=== PATIENT | male | born 1990 | race African-American/Black ===

== ENCOUNTER 2017-06-22 07:47 | Emergency (ER) | payer MEDICAID, OTHER ==
[~2017-06-22] VITALS: Ht 182.9 cm; Wt 65.9 kg
[2017-06-22] MEDS ORDERED: CEPH500T PO (07:58)
[2017-06-22] MEDS ORDERED: LIDOCAINE 2% MDV 20 ML VIAL SC ONE (08:30)
[2017-06-22 09:13] VITALS: BP 117/53
== END 2017-06-22 09:24 | disposition home or self-care (01) ==
LOC: M ED 07:47
DX: L72.3 Sebaceous cyst (principal); Z87.891 Personal history of nicotine dependence

== ENCOUNTER 2024-08-16 12:31 | Emergency (ER) | payer OTHER, MEDICAID ==
[~2024-08-16] VITALS: Ht 182.9 cm; Wt 61.9 kg
[~2024-08-16 12:31] MED LIST: CEPH500T PO
[2024-08-16] MEDS: KETOROLAC 30 MG/ML 1ML VIAL IV ONE (16:17)
[2024-08-16] MEDS ORDERED: IBUP-1022 PO (16:24)
[2024-08-16 16:40] VITALS: BP 128/87; TEMP 99.9; O2SAT 99
== END 2024-08-16 16:46 | disposition home or self-care (01) ==
LOC: EDBD 12:31 → M ED 12:31
DX: S16.1XXA Strain of muscle, fascia and tendon at neck level, initial encounter (principal); S06.0X0A Concussion without loss of consciousness, initial encounter; S80.12XA Contusion of left lower leg, initial encounter; W13.2XXA Fall from, out of or through roof, initial encounter; Y92.009 Unspecified place in unspecified non-institutional (private) residence as the place of occurrence of the external cause; Y93.89 Activity, other specified; Y99.9 Unspecified external cause status; Z79.1 Long term (current) use of non-steroidal anti-inflammatories (NSAID)
CPT/HCPCS: 70450; 72125; 73502; 73552; 73564; 80047; 96374; 99284; J1885

== ENCOUNTER 2024-10-24 12:11 | Inpatient (IN) | payer OTHER ==
[~2024-10-24] VITALS: Ht 182.9 cm; Wt 58.8 kg
[~2024-10-24 12:11] MED LIST changes: +IBUP-1022 PO
[2024-10-24] MEDS ORDERED: ISOVUE-370 76% 100ML VIAL As Ordered ONE (12:54)
[2024-10-24 13:12] LABS: HEMATOCRIT 41.3 % (42.0-52.0); HEMOGLOBIN 14.1 g/dl (13.5-17.5); MEAN CORPUSCULAR HEMOGLOBIN 29.6 pg (27.0-33.0); MEAN CORPUSCULAR HGB CONC 34.1 g/dl (32.0-36.5); MEAN CORPUSCULAR VOLUME 86.6 fl (80.0-96.0); PLATELET COUNT, AUTOMATED 165 10^3/uL (150-450); RED BLOOD COUNT 4.77 10^6/uL (4.30-6.10); WHITE BLOOD COUNT 26.5 10^3/uL (4.0-10.0)
[2024-10-24] MEDS: ONDANSETRON 4MG 2ML VIAL IV ONE (13:13)
[2024-10-24] MEDS: NS (Normal Saline) 0.9% 1,000 ML IV ONE ×2 (13:14→15:55)
[2024-10-24] MEDS: MORPHINE 2 MG/ML 1ML VIAL IV PRN (13:15)
[2024-10-24 13:33] LABS: CK-MB VALUE MASS < 1.0 NG/ML (<3.6); ETHYL ALCOHOL (ETHANOL) 0.006 % (0.000-0.010); LIPASE 22 U/L (12-53)
[2024-10-24 13:35] LABS: ALBUMIN 3.6 G/DL (3.2-5.2); ALKALINE PHOSPHATASE 234 U/L (40-129); ALT/SGPT 108 U/L (7.0-40); AST/SGOT 137 U/L (<34); BILIRUBIN,TOTAL 2.9 MG/DL (0.3-1.2); BLOOD UREA NITROGEN 17 MG/DL (9-23); CALCIUM LEVEL 9.4 MG/DL (8.5-10.1); CARBON DIOXIDE LEVEL 22 MMOL/L (20-31); CHLORIDE LEVEL 102 MMOL/L (98-107); CPK CREATINE PHOSPHOKINASE 59 U/L (46-171); CREATININE FOR GFR 0.91 MG/DL (0.70-1.30); GLOMERULAR FILTRATION RATE > 60.0 (>60); GLUCOSE, FASTING 123 MG/DL (60-100); MB/CK RELATIVE INDEX 1.69 (< OR =4); POTASSIUM SERUM 3.6 MMOL/L (3.5-5.1); SODIUM LEVEL 141 MMOL/L (136-145); TOTAL PROTEIN 7.9 G/DL (5.7-8.2)
[2024-10-24 13:36] LABS: LYMPHOCYTES 4 % (16-44); NEUTROPHILS 88 % (28-66)
[2024-10-24 13:43] LABS: ANISOCYTOSIS 1+; PLATELET ESTIMATE NORMAL (NORMAL)
[2024-10-24] MEDS: NS 0.9% IV ONE (14:04)
[2024-10-24] MEDS: [UNRECOGNIZED DRUG - OTHER] IV ONE (14:04)
[2024-10-24] MEDS: cefTRIAXone SOD 2 GM in DEXTROSE 5% (D5W) ADV/MINI-BAG 50 ML IV ONE (14:04)
[2024-10-24 14:09] LABS: AMPHETAMINES LEVEL URINE NEGATIVE (NEGATIVE)
[2024-10-24 14:10] LABS: BARBITURATES URINE NEGATIVE (NEGATIVE); BENZODIAZEPINES URINE NEGATIVE (NEGATIVE); COCAINE METABOLITE URINE NEGATIVE (NEGATIVE); METHADONE URINE NEGATIVE (NEGATIVE); PHENCYCLIDINE URINE NEGATIVE (NEGATIVE)
[2024-10-24 14:23] LABS: CANNABINOIDS URINE POSITIVE (NEGATIVE); OPIATES URINE POSITIVE (NEGATIVE)
[2024-10-24] MEDS ORDERED: LORazepam 2 MG TAB PO PRN (15:30)
[2024-10-24] MEDS ORDERED: HOME MED LIST COMPLETE! XX SCH (15:45)
[2024-10-24 16:18] LABS: INR 0.9; PARTIAL THROMBOPLASTIN TIME 27.3 SECONDS (24.8-34.2); PROTHROMBIN TIME 12.4 SECONDS (12.5-14.5)
[2024-10-24 16:59] VITALS: BP 128/87; TEMP 98.6; O2SAT 100
[2024-10-24 17:00] VITALS: BP 124/86
[2024-10-24] MEDS: SUCRALFATE 1 GM TAB PO SCH (17:00)
[2024-10-24] MEDS: MULTIVITAMINS/MINERALS THERAP 1 TAB PO SCH (17:01)
[2024-10-24] MEDS: FOLIC ACID 1MG TAB PO SCH (17:01)
[2024-10-24] MEDS: LORazepam 1 MG TAB PO ONE (17:01)
[2024-10-24] MEDS: KETOROLAC 30 MG/ML 1ML VIAL IV ONE (17:02)
[2024-10-24] MEDS: NS (Normal Saline) 0.9% 1,000 ML IV SCH (17:02)
[2024-10-24] MEDS: PIPERACILLIN/TAZOBACTAM SOD 4.5 GM in DEXTROSE 5% (D5W) ADV/MINI-BAG 50 ML IV SCH (17:02)
[2024-10-24] MEDS: DOXYCYCLINE HYCLATE 100MG TABLET PO SCH (17:12)
[2024-10-24] MEDS: IBUPROFEN 400MG TAB PO ONE (19:50)
[2024-10-24 19:54] VITALS: BP 134/95; TEMP 97.5; O2SAT 99
[2024-10-24 20:04] VITALS: BP 134/95
[2024-10-24] MEDS: PANTOPRAZOLE 40MG TAB (PROTONIX) PO SCH (20:11)
[2024-10-24] MEDS: THIAMINE 100 MG TAB PO SCH (20:11)
[2024-10-24 23:18] VITALS: BP 105/50; TEMP 97.2; O2SAT 99
[2024-10-24 23:56] VITALS: BP 105/50
[2024-10-25] VITALS (7 sets, daily range): BP systolic 110–145; BP diastolic 70–95; TEMP 97.3–99.1; O2SAT 99–100
[2024-10-25 08:32] LABS: BASO % 0.2 % (0.0-1.0); EOS % 0.2 % (0.0-3.0); HEMATOCRIT 33.6 % (42.0-52.0); LYMPH # 1.7 10^3/uL (1.5-5.0); LYMPH % 13.8 % (24.0-44.0); MEAN CORPUSCULAR HEMOGLOBIN 29.1 pg (27.0-33.0); MEAN CORPUSCULAR HGB CONC 32.4 g/dl (32.0-36.5); MEAN CORPUSCULAR VOLUME 89.6 fl (80.0-96.0); MONO # 0.3 10^3/uL (0.0-0.8); MONO % 2.5 % (2.0-8.0); NEUTROPHILS # 10.3 10^3/uL (1.5-8.5); NEUTROPHILS % 82.8 % (36.0-66.0); PLATELET COUNT, AUTOMATED 119 10^3/uL (150-450); RED BLOOD COUNT 3.75 10^6/uL (4.30-6.10); WHITE BLOOD COUNT 12.4 10^3/uL (4.0-10.0)
[2024-10-25] MEDS ORDERED: SENOKOT S TAB PO PRN (08:45)
[2024-10-25] MEDS ORDERED: MOM 30ML SUSPENSION UDC PO PRN (08:45)
[2024-10-25 08:54] LABS: BLOOD UREA NITROGEN 12 MG/DL (9-23); CALCIUM LEVEL 7.8 MG/DL (8.5-10.1); CARBON DIOXIDE LEVEL 28 MMOL/L (20-31); CHLORIDE LEVEL 108 MMOL/L (98-107); GLOMERULAR FILTRATION RATE > 60.0 (>60); GLUCOSE, FASTING 91 MG/DL (60-100); POTASSIUM SERUM 3.5 MMOL/L (3.5-5.1); SODIUM LEVEL 140 MMOL/L (136-145)
[2024-10-25 09:04] LABS: HEMOGLOBIN 10.9 g/dl (13.5-17.5)
[2024-10-25 09:12] LABS: ERYTHROCYTE SEDIMENTATION RATE 6 mm/hr (0-15)
[2024-10-25 09:22] LABS: C REACTIVE PROTEIN QUANTITATIV 6.26 MG/DL (<1.0)
[2024-10-25 09:36] LABS: ALBUMIN 2.3 G/DL (3.2-5.2); ALKALINE PHOSPHATASE 170 U/L (40-129); ALT/SGPT 67 U/L (7.0-40); AST/SGOT 94 U/L (<34); BILIRUBIN,DIRECT 1.2 MG/DL (<0.4); BILIRUBIN,TOTAL 2.5 MG/DL (0.3-1.2); TOTAL PROTEIN 5.5 G/DL (5.7-8.2)
[2024-10-25] MEDS: KETOROLAC 30 MG/ML 1ML VIAL IV ONE (09:54)
[2024-10-25] MEDS: oxyCODONE 5MG TAB PO ONE ×3 (09:55→20:12)
[2024-10-26 03:12] VITALS: BP 127/86; TEMP 97.6; O2SAT 100
[2024-10-26 07:59] LABS: BASO % 0.1 % (0.0-1.0); EOS % 0.3 % (0.0-3.0); HEMOGLOBIN 11.1 g/dl (13.5-17.5); LYMPH # 1.8 10^3/uL (1.5-5.0); LYMPH % 22.6 % (24.0-44.0); MEAN CORPUSCULAR HEMOGLOBIN 30.1 pg (27.0-33.0); MEAN CORPUSCULAR HGB CONC 33.6 g/dl (32.0-36.5); MEAN CORPUSCULAR VOLUME 89.4 fl (80.0-96.0); MONO # 0.4 10^3/uL (0.0-0.8); NEUTROPHILS # 5.5 10^3/uL (1.5-8.5); NEUTROPHILS % 71.6 % (36.0-66.0); PLATELET COUNT, AUTOMATED 118 10^3/uL (150-450); RED BLOOD COUNT 3.69 10^6/uL (4.30-6.10); WHITE BLOOD COUNT 7.7 10^3/uL (4.0-10.0)
[2024-10-26 08:00] VITALS: BP 137/87; TEMP 98.1; O2SAT 100
[2024-10-26 08:22] LABS: ALBUMIN 2.5 G/DL (3.2-5.2); ALKALINE PHOSPHATASE 162 U/L (40-129); ALT/SGPT 62 U/L (7.0-40); AST/SGOT 84 U/L (<34); BILIRUBIN,TOTAL 2.3 MG/DL (0.3-1.2); BLOOD UREA NITROGEN 7 MG/DL (9-23); C REACTIVE PROTEIN QUANTITATIV 3.97 MG/DL (<1.0); CALCIUM LEVEL 8.5 MG/DL (8.5-10.1); CARBON DIOXIDE LEVEL 31 MMOL/L (20-31); CHLORIDE LEVEL 104 MMOL/L (98-107); CREATININE FOR GFR 0.87 MG/DL (0.70-1.30); GLOMERULAR FILTRATION RATE > 60.0 (>60); GLUCOSE, FASTING 86 MG/DL (60-100); POTASSIUM SERUM 3.3 MMOL/L (3.5-5.1); SODIUM LEVEL 139 MMOL/L (136-145); TOTAL PROTEIN 6.1 G/DL (5.7-8.2)
[2024-10-26 08:31] LABS: ERYTHROCYTE SEDIMENTATION RATE 14 mm/hr (0-15)
[2024-10-26 08:33] LABS: MONO REFLEX EBV VCA IgM NEGATIVE (NEGATIVE)
[2024-10-26 08:37] LABS: HEPATITIS B SURFACE ANTIGEN NEGATIVE (NEGATIVE)
[2024-10-26] MEDS: oxyCODONE 5MG TAB PO ONE ×2 (08:57→15:19)
[2024-10-26 08:58] LABS: HEPATITIS C VIRUS ABY INDEX 0.03 INDEX (<0.8)
[2024-10-26] MEDS: KETOROLAC 30 MG/ML 1ML VIAL IV ONE ×3 (08:58→20:59)
[2024-10-26 08:59] LABS: HEPATITIS B CORE ANTIBODY IGM NEGATIVE (NEGATIVE)
[2024-10-26 12:00] VITALS: BP 125/90; TEMP 97.3; O2SAT 99
[2024-10-26 15:42] LABS: MAGNESIUM LEVEL 1.4 MG/DL (1.8-2.4)
[2024-10-26] MEDS: POTASSIUM CHLORIDE 10MEQ SR TABLET PO SCH (15:57)
[2024-10-26 16:00] VITALS: BP 135/84; TEMP 97.5; O2SAT 100
[2024-10-26] MEDS: MAG SULF 1GM/100ML (MAG RUN) 1 GM in IV 1 EA IV ONE (17:42)
[2024-10-26] MEDS: MAGNESIUM OXIDE 400MG TAB (MAG-OX) PO ONE (17:43)
[2024-10-26 20:55] VITALS: BP 147/100; TEMP 98.4; O2SAT 100
[2024-10-26] MEDS: MAGNESIUM OXIDE 400MG TAB (MAG-OX) PO SCH (20:58)
[2024-10-27 04:00] VITALS: BP 131/82; TEMP 98.2; O2SAT 99
[2024-10-27 06:11] LABS: BASO % 0.2 % (0.0-1.0); EOS % 0.5 % (0.0-3.0); HEMATOCRIT 30.8 % (42.0-52.0); HEMOGLOBIN 10.3 g/dl (13.5-17.5); LYMPH # 1.9 10^3/uL (1.5-5.0); LYMPH % 31.3 % (24.0-44.0); MEAN CORPUSCULAR HEMOGLOBIN 30.3 pg (27.0-33.0); MEAN CORPUSCULAR HGB CONC 33.4 g/dl (32.0-36.5); MEAN CORPUSCULAR VOLUME 90.6 fl (80.0-96.0); MONO # 0.4 10^3/uL (0.0-0.8); MONO % 6.5 % (2.0-8.0); NEUTROPHILS # 3.7 10^3/uL (1.5-8.5); PLATELET COUNT, AUTOMATED 126 10^3/uL (150-450)
[2024-10-27 06:41] LABS: ALBUMIN 2.4 G/DL (3.2-5.2); ALKALINE PHOSPHATASE 156 U/L (40-129); ALT/SGPT 61 U/L (7.0-40); AST/SGOT 75 U/L (<34); BILIRUBIN,TOTAL 1.6 MG/DL (0.3-1.2); BLOOD UREA NITROGEN 11 MG/DL (9-23); CALCIUM LEVEL 8.6 MG/DL (8.5-10.1); CARBON DIOXIDE LEVEL 31 MMOL/L (20-31); CHLORIDE LEVEL 104 MMOL/L (98-107); CREATININE FOR GFR 1.04 MG/DL (0.70-1.30); GLOMERULAR FILTRATION RATE > 60.0 (>60); GLUCOSE, FASTING 112 MG/DL (60-100); MAGNESIUM LEVEL 1.8 MG/DL (1.8-2.4); POTASSIUM SERUM 3.4 MMOL/L (3.5-5.1); SODIUM LEVEL 140 MMOL/L (136-145); TOTAL PROTEIN 5.7 G/DL (5.7-8.2)
[2024-10-27 07:20] VITALS: BP 123/88; TEMP 98.2; O2SAT 100
[2024-10-27 08:31] LABS: PROCALCITONIN 9.57 ng/ml
[2024-10-27] MEDS: KCL 10MEQ/100ML SWI (KRUN) 10 MEQ in IV 1 EA IV SCH (10:02)
[2024-10-27 11:12] VITALS: BP 137/93; TEMP 98.2; O2SAT 100
[2024-10-27] MEDS: POTASSIUM CHLORIDE 10MEQ SR TABLET PO ONE (11:30)
[2024-10-27] MEDS ORDERED: MAGN400T2 PO (12:22)
[2024-10-27] MEDS ORDERED: LIDO5DIS41 TOP (12:22)
[2024-10-27] MEDS ORDERED: POTA-151 PO (12:22)
[2024-10-27] MEDS ORDERED: LEVO1TAB40 PO (12:22)
[2024-10-27] MEDS ORDERED: IBUP-1114 PO (12:22)
[2024-10-28 23:17] LABS: MYCOPLASMA PNEUMONIAE IGG 1.6 (<=0.90)
[2024-10-29 16:57] LABS: URINE STREP PNEUMONIAE ANTIGEN NOT DETECTED (NOT DETECT)
== END 2024-10-27 15:10 | disposition home or self-care (01) | DRG 871 ==
LOC: M ED 12:11 → M ED INP 15:26 → M PCU 16:33
PROVIDERS: ADMIT General Practice; ATTEND Internal Medicine
DX: A41.9 Sepsis, unspecified organism (principal); J15.69 Pneumonia due to other Gram-negative bacteria; F10.20 Alcohol dependence, uncomplicated; K76.0 Fatty (change of) liver, not elsewhere classified; E87.6 Hypokalemia; E83.42 Hypomagnesemia

== ENCOUNTER 2024-11-15 08:11 | Inpatient (IN) | payer OTHER ==
[~2024-11-15] VITALS: Ht 182.9 cm; Wt 61.8 kg
[2024-11-15] VITALS (17 sets, daily range): BP systolic 108–113; BP diastolic 67–81; TEMP 96.5–99.3; O2SAT 96–100
[~2024-11-15 08:11] MED LIST changes: +IBUP-1114 PO; +LEVO1TAB40 PO; +LIDO5DIS41 TOP; +MAGN400T2 PO; +POTA-151 PO
[2024-11-15] MEDS ORDERED: LORazepam 2 MG TAB PO PRN (08:45)
[2024-11-15] MEDS: ONDANSETRON 4MG 2ML VIAL IV ONE (09:00)
[2024-11-15] MEDS: LORazepam 2 MG/ML 1ML VIAL IV STA (09:00)
[2024-11-15] MEDS: NS (Normal Saline) 0.9% 1,910 ML in IV 1 EA IV ONE (09:01)
[2024-11-15 09:11] LABS: BASO % 0.1 % (0.0-1.0); HEMATOCRIT 36.5 % (42.0-52.0); HEMOGLOBIN 12.4 g/dl (13.5-17.5); LYMPH # 1.8 10^3/uL (1.5-5.0); LYMPH % 22.3 % (24.0-44.0); MEAN CORPUSCULAR HEMOGLOBIN 30.9 pg (27.0-33.0); MONO # 0.2 10^3/uL (0.0-0.8); MONO % 1.9 % (2.0-8.0); NEUTROPHILS # 5.9 10^3/uL (1.5-8.5); NEUTROPHILS % 75.4 % (36.0-66.0); PLATELET COUNT, AUTOMATED 133 10^3/uL (150-450); RED BLOOD COUNT 4.01 10^6/uL (4.30-6.10); WHITE BLOOD COUNT 7.8 10^3/uL (4.0-10.0)
[2024-11-15 09:21] LABS: INR 0.9; PARTIAL THROMBOPLASTIN TIME 25.4 SECONDS (24.8-34.2); PROTHROMBIN TIME 12.5 SECONDS (12.5-14.5)
[2024-11-15] MEDS ORDERED: NS (Normal Saline) 0.9% 1,000 ML IV ONE (09:25)
[2024-11-15 09:34] LABS: LIPASE 59 U/L (12-53)
[2024-11-15 09:35] LABS: ETHYL ALCOHOL (ETHANOL) 0.143 % (0.000-0.010)
[2024-11-15] MEDS: MULTIVITAMINS/MINERALS THERAP 1 TAB PO SCH (09:35)
[2024-11-15] MEDS: FOLIC ACID 1MG TAB PO SCH (09:35)
[2024-11-15] MEDS: THIAMINE 100 MG TAB PO SCH (09:35)
[2024-11-15 09:36] LABS: AMYLASE 97 U/L (30-118); C REACTIVE PROTEIN QUANTITATIV 2.37 MG/DL (<1.0)
[2024-11-15 09:37] LABS: ALBUMIN 3.9 G/DL (3.2-5.2); ALKALINE PHOSPHATASE 151 U/L (40-129); ALT/SGPT 67 U/L (7.0-40); AST/SGOT 168 U/L (<34); BILIRUBIN,DIRECT 0.6 MG/DL (<0.4); BILIRUBIN,TOTAL 1.7 MG/DL (0.3-1.2); BLOOD UREA NITROGEN 13 MG/DL (9-23); CALCIUM LEVEL 9.2 MG/DL (8.5-10.1); CARBON DIOXIDE LEVEL 24 MMOL/L (20-31); CHLORIDE LEVEL 102 MMOL/L (98-107); CREATININE FOR GFR 0.88 MG/DL (0.70-1.30); GLOMERULAR FILTRATION RATE > 60.0 (>60); GLUCOSE, FASTING 116 MG/DL (60-100); POTASSIUM SERUM 3.4 MMOL/L (3.5-5.1); SODIUM LEVEL 141 MMOL/L (136-145)
[2024-11-15 09:43] LABS: PROCALCITONIN 0.21 ng/ml
[2024-11-15 09:44] LABS: APPEARANCE, URINE HAZY (CLEAR); BACTERIA, URINE AUTO NEGATIVE (NEGATIVE); BILIRUBIN, URINE AUTO NEGATIVE (NEGATIVE); BLOOD, URINE BLOOD NEGATIVE (NEGATIVE); COLOR, URINE YELLOW (YELLOW); GLUCOSE, URINE (UA) AUTO NEGATIVE (NEGATIVE); KETONE, URINE AUTO TRACE mg/dL (NEGATIVE); LEUKOCYTE ESTERASE, URINE AUTO NEGATIVE (NEGATIVE); MUCUS, URINE SMALL (NEGATIVE); NITRITE, URINE AUTO NEGATIVE (NEGATIVE); PROTEIN, URINE AUTO 1+ mg/dL (NEGATIVE); RBC, URINE AUTO 0 /HPF (0-3); SPECIFIC GRAVITY URINE AUTO 1.014 (1.002-1.035); SQUAMOUS EPITHELIAL CELL UR AU 0 /HPF (0-6); UROBILINOGEN, URINE AUTO 0.2 mg/dL (0.0-2.0); WBC, URINE AUTO 0 /HPF (0-3)
[2024-11-15] MEDS ORDERED: ISOVUE-370 76% 100ML VIAL As Ordered ONE (09:44)
[2024-11-15 09:51] LABS: ABG BASE EXCESS -3.8 (-2.0-2.0); ABG HCO3 18.4 MMOL/L (22.0-26.0); ABG O2 SATURATION 96.6 % (95.0-99.0); ABG PARTIAL PRESSURE CO2 25.3 mmHg (35.0-45.0); ABG PARTIAL PRESSURE O2 100.1 mmHg (75.0-100.0); ABG STANDARD HCO3 21.3 MMOL/L. (22.0-26.0); ABG TOTAL CO2 19.2 MMOL/L (22.0-29.0); ABG pH (ARTERIAL) 7.479 UNITS (7.350-7.450)
[2024-11-15] MEDS: CEFEPIME HCL 2 GM in DEXTROSE 5% (D5W) ADV/MINI-BAG 50 ML IV ONE (10:12)
[2024-11-15] MEDS ORDERED: MOM 30ML SUSPENSION UDC PO PRN (11:20)
[2024-11-15] MEDS ORDERED: LISI10TA22 PO (11:28)
[2024-11-15] MEDS ORDERED: HOME MED LIST COMPLETE! XX SCH (11:30)
[2024-11-15] MEDS: LR 1,000 ML IV SCH (12:05)
[2024-11-15] MEDS: LORazepam 2 MG TAB PO PRN (12:06)
[2024-11-15] MEDS: SCOPOLAMINE 1MG TRANSDERMAL PATCH TOP SCH (12:06)
[2024-11-15] MEDS: KETOROLAC 30 MG/ML 1ML VIAL IV ONE (12:07)
[2024-11-15 12:15] LABS: MAGNESIUM LEVEL 1.2 MG/DL (1.8-2.4)
[2024-11-15] MEDS: IPRATROPIUM 0.5MG/ALBUTEROL 2.5MG INH SOL UD 3ML (DUONEB) NEB SCH (12:27)
[2024-11-15] MEDS: diazePAM 10 MG TAB PO SCH ×2 (12:52→23:16)
[2024-11-15] MEDS: SUCRALFATE 1 GM TAB PO SCH (12:52)
[2024-11-15] MEDS: PROCHLORPERAZINE 5MG TAB PO SCH (13:42)
[2024-11-15] MEDS: ACETAMINOPHEN 500 MG TAB PO SCH (13:42)
[2024-11-15 13:59] LABS: AMPHETAMINES LEVEL URINE NEGATIVE (NEGATIVE); BARBITURATES URINE NEGATIVE (NEGATIVE); BENZODIAZEPINES URINE NEGATIVE (NEGATIVE); COCAINE METABOLITE URINE NEGATIVE (NEGATIVE); METHADONE URINE NEGATIVE (NEGATIVE); OPIATES URINE NEGATIVE (NEGATIVE); PHENCYCLIDINE URINE NEGATIVE (NEGATIVE)
[2024-11-15 14:00] LABS: CANNABINOIDS URINE POSITIVE (NEGATIVE)
[2024-11-15] MEDS: MAG SULF 1GM/100ML (MAG RUN) 1 GM in IV 1 EA IV SCH (14:58)
[2024-11-15] MEDS: diazePAM 5MG TABLET PO SCH (14:59)
[2024-11-15] MEDS: POTASSIUM CHLORIDE 10MEQ SR TABLET PO ONE (15:00)
[2024-11-15] MEDS ORDERED: MORPHINE 2 MG/ML 1ML VIAL IV PRN (15:50)
[2024-11-15] MEDS: PANTOPRAZOLE 40MG VIAL IV SCH (17:35)
[2024-11-15] MEDS: KETOROLAC 30 MG/ML 1ML VIAL IV SCH (17:36)
[2024-11-15] MEDS: RIVAROXABAN 10MG TAB (XARELTO) PO SCH (17:37)
[2024-11-16] VITALS (30 sets, daily range): BP systolic 107–133; BP diastolic 58–92; TEMP 96.9–98.3; O2SAT 90–100
[2024-11-16] MEDS: DOCUSATE SODIUM 100MG CAPSULE PO SCH (00:34)
[2024-11-16] MEDS: THIAMINE 100 MG TAB PO SCH (00:34)
[2024-11-16] MEDS: GABAPENTIN 300 MG CAP PO SCH (00:34)
[2024-11-16 05:57] LABS: BLOOD UREA NITROGEN 15 MG/DL (9-23); CALCIUM LEVEL 8.3 MG/DL (8.5-10.1); CARBON DIOXIDE LEVEL 28 MMOL/L (20-31); CHLORIDE LEVEL 104 MMOL/L (98-107); CREATININE FOR GFR 0.67 MG/DL (0.70-1.30); GLOMERULAR FILTRATION RATE > 60.0 (>60); GLUCOSE, FASTING 95 MG/DL (60-100); POTASSIUM SERUM 3.5 MMOL/L (3.5-5.1); SODIUM LEVEL 140 MMOL/L (136-145)
[2024-11-16 06:01] LABS: BASO % 0.1 % (0.0-1.0); EOS % 0.3 % (0.0-3.0); HEMATOCRIT 29.7 % (42.0-52.0); LYMPH # 1.2 10^3/uL (1.5-5.0); MEAN CORPUSCULAR HEMOGLOBIN 30.9 pg (27.0-33.0); MEAN CORPUSCULAR HGB CONC 33.7 g/dl (32.0-36.5); MEAN CORPUSCULAR VOLUME 91.7 fl (80.0-96.0); MONO # 0.4 10^3/uL (0.0-0.8); MONO % 3.3 % (2.0-8.0); NEUTROPHILS # 9.1 10^3/uL (1.5-8.5); NEUTROPHILS % 84.7 % (36.0-66.0); RED BLOOD COUNT 3.24 10^6/uL (4.30-6.10); WHITE BLOOD COUNT 10.7 10^3/uL (4.0-10.0)
[2024-11-16 06:18] LABS: PLATELET COUNT, AUTOMATED 90 10^3/uL (150-450)
[2024-11-16 07:56] LABS: MAGNESIUM LEVEL 2.5 MG/DL (1.8-2.4)
[2024-11-16] MEDS: MULTIVITAMINS/MINERALS THERAP 1 TAB PO SCH (08:36)
[2024-11-16] MEDS: FOLIC ACID 1MG TAB PO SCH (08:36)
[2024-11-16] MEDS: POTASSIUM CHLORIDE 10MEQ SR TABLET PO SCH (08:36)
[2024-11-16] MEDS ORDERED: ONDANSETRON 4MG 2ML VIAL IV PRN (12:25)
[2024-11-16] MEDS: guaiFENesin/CODEINE SYRUP 5 ML UDC PO SCH (13:18)
[2024-11-16] MEDS: diazePAM 5MG TABLET PO SCH (13:19)
[2024-11-17] VITALS (12 sets, daily range): BP systolic 133–152; BP diastolic 88–100; TEMP 97.2–97.7; O2SAT 95–100
[2024-11-17] MEDS: KETOROLAC 30 MG/ML 1ML VIAL IV PRN (04:25)
[2024-11-17 06:05] LABS: BASO % 0.2 % (0.0-1.0); EOS # 0.1 10^3/uL (0.0-0.5); EOS % 0.5 % (0.0-3.0); HEMATOCRIT 34.3 % (42.0-52.0); HEMOGLOBIN 11.2 g/dl (13.5-17.5); LYMPH % 20.5 % (24.0-44.0); MEAN CORPUSCULAR HEMOGLOBIN 30.9 pg (27.0-33.0); MEAN CORPUSCULAR HGB CONC 32.7 g/dl (32.0-36.5); MEAN CORPUSCULAR VOLUME 94.5 fl (80.0-96.0); MONO # 0.6 10^3/uL (0.0-0.8); NEUTROPHILS % 72.3 % (36.0-66.0); PLATELET COUNT, AUTOMATED 122 10^3/uL (150-450); RED BLOOD COUNT 3.63 10^6/uL (4.30-6.10); WHITE BLOOD COUNT 9.6 10^3/uL (4.0-10.0)
[2024-11-17 06:32] LABS: BLOOD UREA NITROGEN 10 MG/DL (9-23); CALCIUM LEVEL 8.8 MG/DL (8.5-10.1); CARBON DIOXIDE LEVEL 26 MMOL/L (20-31); CHLORIDE LEVEL 108 MMOL/L (98-107); CREATININE FOR GFR 1.01 MG/DL (0.70-1.30); GLOMERULAR FILTRATION RATE > 60.0 (>60); GLUCOSE, FASTING 91 MG/DL (60-100); POTASSIUM SERUM 3.7 MMOL/L (3.5-5.1); SODIUM LEVEL 142 MMOL/L (136-145)
[2024-11-17] MEDS: LIDOCAINE 5% (LIDODERM) PATCH TD SCH (08:06)
[2024-11-17] MEDS ORDERED: TRAN1DIS4 TOP (09:08)
[2024-11-17] MEDS ORDERED: DIAZ5TAB PO (09:08)
[2024-11-17] MEDS ORDERED: GABA-1171 PO (09:08)
== END 2024-11-17 10:27 | disposition home or self-care (01) | DRG 178 ==
LOC: M ED 08:11 → M ED INP 11:17 → M PCU 14:19
PROVIDERS: ADMIT Student in an Organized Health Care Education/Training Program; ATTEND Student in an Organized Health Care Education/Training Program
DX: J69.0 Pneumonitis due to inhalation of food and vomit (principal); F10.239 Alcohol dependence with withdrawal, unspecified; E87.20 Acidosis, unspecified; I10 Essential (primary) hypertension; F17.210 Nicotine dependence, cigarettes, uncomplicated; K76.89 Other specified diseases of liver; K76.0 Fatty (change of) liver, not elsewhere classified; R00.0 Tachycardia, unspecified; R74.01 Elevation of levels of liver transaminase levels; E83.42 Hypomagnesemia; Z79.899 Other long term (current) drug therapy

== ENCOUNTER 2025-09-20 23:13 | Emergency (ER) | payer OTHER ==
[~2025-09-20] VITALS: Ht 182.9 cm; Wt 63.6 kg
[~2025-09-20 23:13] MED LIST changes: +DIAZ5TAB PO; +GABA-1171 PO; -IBUP-1022 PO; +IBUP600T42 PO; +LIDO1ADH93 TOP; -LIDO5DIS41 TOP; +LISI10TA22 PO; +TRAN1DIS4 TOP
[2025-09-20] MEDS ORDERED: ONDANSETRON 4MG/2ML VIAL ONE (23:14)
[2025-09-21] MEDS ORDERED: ONDANSETRON 4MG/2ML VIAL As Ordered ONE (01:44)
[2025-09-21 02:58] LABS: ALT/SGPT 94 U/L (7.0-40); AST/SGOT 228 U/L (<34); CALCIUM LEVEL 10.2 MG/DL (8.5-10.1); CARBON DIOXIDE LEVEL 16 MMOL/L (20-31); CHLORIDE LEVEL 93 MMOL/L (98-107); CK-MB VALUE MASS < 1.0 NG/ML (<3.6); CPK CREATINE PHOSPHOKINASE 176 U/L (46-171); CREATININE FOR GFR 0.80 MG/DL (0.70-1.30); GLOMERULAR FILTRATION RATE > 90.0 (>60); POTASSIUM SERUM 4.3 MMOL/L (3.5-5.1); SODIUM LEVEL 137 MMOL/L (136-145)
[2025-09-21] MEDS ORDERED: ISOVUE-370 76% 100 ML VIAL As Ordered ONE (03:16)
[2025-09-21 03:18] LABS: BASO # 0.0 10^3/uL (0.0-0.2); BASO % 0.6 % (0.0-1.0); EOS # 0.0 10^3/uL (0.0-0.5); EOS % 0.3 % (0.0-3.0); LYMPH # 2.9 10^3/uL (1.5-5.0); LYMPH % 46.8 % (24.0-44.0); MONO # 0.4 10^3/uL (0.0-0.8); MONO % 6.4 % (2.0-8.0); NEUTROPHILS # 2.8 10^3/uL (1.5-8.5); NEUTROPHILS % 45.7 % (36.0-66.0)
[2025-09-21 03:20] LABS: PLATELET COUNT, AUTOMATED 99 10^3/uL (150-450)
[2025-09-21] MEDS: PIPERACILLIN/TAZOBACTAM SOD 4.5 GM in DEXTROSE 5% (D5W) ADV/MINI-BAG 50 ML IV ONE (03:32)
[2025-09-21] MEDS: ACETAMINOPHEN *IV* 1,000 MG in IV 1 EA IV ONE (03:33)
[2025-09-21] MEDS: NS (Normal Saline) 0.9% 1,000 ML IV ONE ×3 (04:53→05:45)
[2025-09-21] MEDS: FAMOTIDINE 20 MG/2 ML VIAL IVP ONE (04:53)
[2025-09-21] MEDS: diphenhydrAMINE 50 MG/ML VIAL IV STA (05:42)
[2025-09-21] MEDS ORDERED: ONDA-282 PO (07:15)
[2025-09-21] MEDS ORDERED: OMEP40CA4 PO (07:20)
[2025-09-21] MEDS: traMADol 50 MG TAB (HOME DOSE PACK) PO ONE (07:50)
[2025-09-21 07:54] VITALS: BP 123/79; TEMP 97.4; O2SAT 100
== END 2025-09-21 07:59 | disposition home or self-care (01) ==
LOC: M ED 23:13
DX: R07.9 Chest pain, unspecified (principal); E86.0 Dehydration; Q18.1 Preauricular sinus and cyst; R00.0 Tachycardia, unspecified; I45.81 Long QT syndrome; I44.4 Left anterior fascicular block; I10 Essential (primary) hypertension; K76.0 Fatty (change of) liver, not elsewhere classified; F17.200 Nicotine dependence, unspecified, uncomplicated; F10.20 Alcohol dependence, uncomplicated; Z79.899 Other long term (current) drug therapy
CPT/HCPCS: 70480; 71045; 74177; 80048; 80076; 82077; 82550; 82553; 83605; 83690; 84484; 85025; 85049; 85055; 87040; 87486; 87581; 87633; 87798; 93005; 96361; 96365; 96367; 96375; 99285; J0131; J1200; J1308; J2405; J2543; Q9967

== ENCOUNTER 2025-11-02 05:07 | Emergency (ER) | payer OTHER ==
[~2025-11-02] VITALS: Ht 182.9 cm; Wt 68.1 kg
[~2025-11-02 05:07] MED LIST changes: +OMEP40CA4 PO; +ONDA-282 PO
[2025-11-02] MEDS: PANTOPRAZOLE 40MG VIAL IV ONE (06:32)
[2025-11-02] MEDS: NS (Normal Saline) 0.9% 1,000 ML IV ONE (06:32)
[2025-11-02] MEDS: ONDANSETRON 4MG/2ML VIAL IV ONE (06:32)
[2025-11-02] MEDS: MORPHINE 4 MG/ML 1 ML VIAL IV ONE (06:33)
[2025-11-02 06:37] LABS: BASO # 0.0 10^3/uL (0.0-0.2); BASO % 0.2 % (0.0-1.0); EOS # 0.0 10^3/uL (0.0-0.5); EOS % 0.1 % (0.0-3.0); LYMPH # 1.5 10^3/uL (1.5-5.0); LYMPH % 18.0 % (24.0-44.0); MONO # 0.3 10^3/uL (0.0-0.8); MONO % 3.6 % (2.0-8.0); NEUTROPHILS # 6.6 10^3/uL (1.5-8.5); NEUTROPHILS % 77.6 % (36.0-66.0); PLATELET COUNT, AUTOMATED 132 10^3/uL (150-450)
[2025-11-02 07:03] LABS: ALT/SGPT 110 U/L (7.0-40); AST/SGOT 253 U/L (<34); CALCIUM LEVEL 9.4 MG/DL (8.5-10.1); CARBON DIOXIDE LEVEL 25 MMOL/L (20-31); CHLORIDE LEVEL 100 MMOL/L (98-107); CREATININE FOR GFR 0.83 MG/DL (0.70-1.30); GLOMERULAR FILTRATION RATE > 90.0 (>60); POTASSIUM SERUM 3.2 MMOL/L (3.5-5.1); SODIUM LEVEL 142 MMOL/L (136-145)
[2025-11-02] MEDS ORDERED: ISOVUE-370 76% 100 ML VIAL As Ordered ONE (07:21)
[2025-11-02] MEDS: KETOROLAC 30 MG/ML 1 ML VIAL IV ONE (07:21)
[2025-11-02 08:06] LABS: CK-MB VALUE MASS < 1.0 NG/ML (<3.6)
[2025-11-02 08:07] LABS: CPK CREATINE PHOSPHOKINASE 200 U/L (46-171)
[2025-11-02 10:10] LABS: AMPHETAMINES LEVEL URINE NEGATIVE (NEGATIVE); BARBITURATES URINE NEGATIVE (NEGATIVE); BENZODIAZEPINES URINE NEGATIVE (NEGATIVE); COCAINE METABOLITE URINE NEGATIVE (NEGATIVE); METHADONE URINE NEGATIVE (NEGATIVE); PHENCYCLIDINE URINE NEGATIVE (NEGATIVE)
[2025-11-02 10:11] LABS: CANNABINOIDS URINE NEGATIVE (NEGATIVE); OPIATES URINE POSITIVE (NEGATIVE)
[2025-11-02] MEDS: AZITHROMYCIN 250 MG TABLET PO ONE (10:43)
[2025-11-02] MEDS: ACETAMINOPHEN 325 MG TAB PO ONE (10:44)
[2025-11-02] MEDS: cefTRIAXone SOD 1 GM in DEXTROSE 5% (D5W) ADV/MINI-BAG 50 ML IV ONE (10:45)
[2025-11-02] MEDS ORDERED: IBUP600T42 PO (11:48)
[2025-11-02] MEDS ORDERED: DOXY-441 PO (11:48)
[2025-11-02] MEDS ORDERED: CEFD1CAP9 PO (11:48)
[2025-11-02 12:02] VITALS: BP 129/74; TEMP 101.2; O2SAT 97
== END 2025-11-02 12:04 | disposition home or self-care (01) ==
LOC: M ED 05:07
DX: J18.9 Pneumonia, unspecified organism (principal); R10.31 Right lower quadrant pain; R00.1 Bradycardia, unspecified; I45.81 Long QT syndrome; I44.4 Left anterior fascicular block; I10 Essential (primary) hypertension; R16.0 Hepatomegaly, not elsewhere classified; K76.0 Fatty (change of) liver, not elsewhere classified; F10.10 Alcohol abuse, uncomplicated; Z79.2 Long term (current) use of antibiotics; Z79.899 Other long term (current) drug therapy
CPT/HCPCS: 71045; 71275; 74177; 76705; 80048; 80076; 80307; 82550; 82553; 83690; 84484; 85025; 93005; 96361; 96365; 96375; 99285; J0696; J1885; J2405; J2470; Q9967